=== PATIENT | female | born 2000 | race Caucasian/White ===

== ENCOUNTER 2019-07-01 20:32 | Emergency (ER) | payer OTHER ==
[2019-07-01] MEDS ORDERED: Adacel (T-DAP) 0.5 ML SYRINGE ONE (21:09)
[2019-07-01] MEDS ORDERED: Lidocaine 1% (PF) 30 ML VIAL ONE (21:14)
--- NOTE | 2019-07-01 21:20 | RAD ---
XR Finger(s) Rt Min 2 View: 07/01/2019 8:56 PM CLINICAL INDICATION: Right ring finger laceration with glass COMPARISON: None. FINDINGS: Bones: No acute osseous abnormality. Joints: Joint spaces are preserved. Soft Tissue: Soft tissues are normal appearing. No radiopaque foreign body is demonstrated. IMPRESSION: No acute osseous abnormality..
== END 2019-07-01 22:10 | disposition home or self-care (01) ==
LOC: ERS 20:32
DX: S61.314A Laceration without foreign body of right ring finger with damage to nail, initial encounter (principal); F41.9 Anxiety disorder, unspecified; F32.9 Major depressive disorder, single episode, unspecified; Z79.01 Long term (current) use of anticoagulants; Z79.899 Other long term (current) drug therapy; W25.XXXA Contact with sharp glass, initial encounter; Y92.69 Other specified industrial and construction area as the place of occurrence of the external cause; Y99.0 Civilian activity done for income or pay
CPT/HCPCS: 12001; 90471; 90715; J2001